=== PATIENT | male | born 1965 | race Caucasian/White ===

== ENCOUNTER → 2017-08-09 | Outpatient (CLI) | payer OTHER ==
--- NOTE | 2017-08-09 15:10 | MR ---
EXAMINATION TYPE: MR knee RT wo con DATE OF EXAM: 08/09/2017 COMPARISON: Plain film 07/26/2017 HISTORY: Right knee pain TECHNIQUE: Multiplanar, multisequence imaging of the knee is performed without IV contrast. FINDINGS: MEDIAL MENISCUS: There is complex tear of the posterior horn the medial meniscus, vertical as well as horizontal component, anterior horn is intact LATERAL MENISCUS: Anterior and posterior horns are intact without tear. CRUCIATE LIGAMENTS: The anterior and posterior cruciate ligaments are intact and unremarkable. COLLATERAL LIGAMENTS: There is some fluid signal along the medial collateral ligament, difficult to e xclude some meniscocapsular separation, strain of the medial collateral ligament EXTENSOR MECHANISM: Visualized quadriceps and patellar tendons are intact. EFFUSION: Small joint effusion is present POPLITEAL CYST: No popliteal/naranjo cyst. TRICOMPARTMENT SPACES: Joint space loss present at the medial compartment CARTILAGE: Grade 2 to grade III chondromalacia present in the medial compartment BONE MARROW SIGNAL: No focal abnormal marrow signal is appreciated. OTHER: As noted on plain film there is a nonfused apophysis at the tibial tubercle, some cystic sign al present within the unfused bone. Some reactive bone marrow edema present in the medial compartment along the medial femoral condyle and medial tibial plateau at the medial extent IMPRESSION: Tear of the medial meniscus, osteoarthritis. Findings of the medial collateral ligament as described. Additional findings above.
== END ==
LOC: RADMRIMAIN 10:59
PROVIDERS: ATTEND Orthopaedic Surgery
DX: S83.241A Other tear of medial meniscus, current injury, right knee, initial encounter (principal); M17.11 Unilateral primary osteoarthritis, right knee; M94.261 Chondromalacia, right knee

== ENCOUNTER → 2017-08-20 | Outpatient (CLI) | payer OTHER ==
[2017-08-20 09:49] LABS: Basophils % (A) 1 %; Eosinophils # (A) 0.3 k/uL (0-0.7); Eosinophils % (A) 6 %; HCT 41.2 % (39.0-53.0); HGB 14.6 gm/dL (13.0-17.5); Lymphocytes # (A) 1.2 k/uL (1.0-4.8); Lymphocytes % (A) 21 %; MCH 30.1 pg (25.0-35.0); MCHC 35.5 g/dL (31.0-37.0); Mean Platelet Volume 6.9; Monocytes # (A) 0.4 k/uL (0-1.0); Monocytes % (A) 6 %; Neutrophils # (A) 3.8 k/uL (1.3-7.7); Neutrophils % (A) 65 %; Platelet Count 244 k/uL (150-450); RBC 4.84 m/uL (4.30-5.90); RDW 12.8 % (11.5-15.5); WBC 5.9 k/uL (3.8-10.6)
[2017-08-20 10:06] LABS: Potassium 4.5 mmol/L (3.5-5.1); Prothrombin Time 10.1 sec (9.0-12.0)
== END | disposition home or self-care (01) ==
LOC: LABPAT 08:52
PROVIDERS: ATTEND Orthopaedic Surgery
DX: Z01.818 Encounter for other preprocedural examination (principal); Z01.812 Encounter for preprocedural laboratory examination; M23.91 Unspecified internal derangement of right knee
CPT/HCPCS: 36415; 80051; 85025; 85610; 93005

== ENCOUNTER 2017-08-24 11:03 | Day surgery (SDC) | payer OTHER ==
[2017-08-19 14:15] VITALS: BMI 41.8
--- NOTE | 2017-08-23 09:15 | HP ---
HISTORY AND PHYSICAL CHIEF COMPLAINT: Right knee pain. HISTORY OF PRESENT ILLNESS: The patient is a 52-year-old [employer] employee who presents with progressive right knee pain for the past 6 months. He notes medial pain along with swelling and stiffness. He has intermittent giving way. He has tried anti-inflammatories with minimal relief. He notes that limits his normal function and activities. PAST MEDICAL HISTORY: Significant for asthma and COPD. CURRENT MEDICATIONS: 1. Advair. 2. Albuterol. He denies drug allergies. SURGICAL HISTORY: Negative. FAMILY HISTORY: Significant for diabetes and cancer. SOCIAL HISTORY: Significant for previous tobacco use; however, he recently quit 2 months ago. PHYSICAL EXAMINATION: The patient is approximately 5 foot 11, 295 pounds of endomorphic habitus. HEENT exam is nonfocal. Neck is supple. He has painless passive motion of his right hip. Straight leg raise is negative. Active motion right knee -10 to 105 degrees of flexion. He has a mild effusion. He is tender about the medial joint line. Collaterals are stable, Chico is negative, Yoshi's elicits medial pain. His distal neurovascular appears to be intact in the right lower extremity. MRI report right knee 08/09/2017 shows a posterior medial meniscal tear along with medial compartment degenerative changes. IMPRESSION: 1. Internal derangement, right knee with symptomatic medial meniscal tear. 2. Right knee moderate medial compartment osteoarthrosis. 3. Increased body mass index with BMI of 41.14. RECOMMENDATIONS: I talked to the patient at length regarding his treatment options. At this point, he is having significant pain and mechanical symptoms that limit his normal function and activities. After thorough discussion, he opts to proceed with surgery. We will plan to proceed with arthroscopic evaluation with probable partial medial meniscectomy. We will likely perform that as an outpatient procedure. Risks and benefits were discussed at length in layman's terms. MMODL / IJN: [id number] /
[~2017-08-24 11:03] MED LIST: DEXAMETHASONE SOD PHOSPHATE 10 MG/ML 1 ML VIAL IV ONE; LACTATED RINGERS 1,000 ML IV SCH; LIDOCAINE 1% 20 ML VIAL (10MG/ML) FOR IV START INTRADERMA PRN; MIDAZOLAM 2 MG/2 ML VIAL IV PRN; MORPHINE SULFATE 4 MG/ML SYRINGE IV PRN; ONDANSETRON 4 MG/2 ML VIAL IVP ONE; SCOPOLAMINE 1.5MG/72HR PATCH TRANSDERM ONE
[2017-08-24] MEDS ORDERED: ROPIVACAINE 5 MG/ML 30 ML VIAL ONE (11:06)
[2017-08-24] MEDS ORDERED: LIDOCAINE 2%-EPI 1:100,000 20 ML VIAL ONE (11:06)
[2017-08-24] MEDS ORDERED: fentaNYL (PF) 50 MCG/ML 2 ML AMP ONE (13:11)
[2017-08-24] MEDS ORDERED: LIDOCAINE 1% INJ 10MG/ML (20 ML MDV) ONE (13:11)
[2017-08-24] MEDS ORDERED: HYDROmorphone (PF) 1 MG/ML ONE (13:11)
[2017-08-24] MEDS ORDERED: MIDAZOLAM 2 MG/2 ML VIAL ONE (13:11)
[2017-08-24] MEDS ORDERED: PROPOFOL 10 MG/ML 20 ML VIAL IV ONE (13:11)
[2017-08-24] MEDS ORDERED: SUCCINYLCHOLINE CHLORIDE VIAL 200 MG/10 ML VIAL IV ONE (13:11)
[2017-08-24] MEDS ORDERED: EPINEPHrine (PF) 1 ML in SODIUM CHLORIDE 0.9% IRRIGATIO 3,000 ML IRRIGATION ONE ×4 (13:34)
--- NOTE | 2017-08-24 14:03 | P.OP ---
Date of Procedure: 08/24/17 Preoperative Diagnosis: Right knee internal derangement Postoperative Diagnosis: Right knee posterior medial meniscal tear/middle one third lateral meniscal tear /reactive synovitis Procedure(s) Performed: Right knee arthroscopic partial medial meniscectomy/partial lateral meniscectomy /partial synovectomy of the medial, lateral, and patellofemoral compartments Anesthesia: RIZWANA Surgeon: Brennan Lockett Estimated Blood Loss (ml): 10 Pathology: none sent Condition: stable Disposition: PACU Indications for Procedure: The patient is a 52-year-old male who presents with progressive right knee pain and mechanical symptoms despite conservative measures. A discussion of the risks and benefits of operative intervention versus continued conservative measures was made with the patient. His MRI was consistent with a symptomatic medial meniscal tear. He opted to proceed with surgery. Operative risks to include infection, neurovascular injury, development of blood clots, possible incomplete resolution of symptoms, possible worsening symptoms and need for subsequent procedures was discussed. Informed consent was obtained. Operative Findings: As below Description of Procedure: The patient was brought to the operating room, and after induction of general anesthesia examined the right knee. Collaterals were stable, Chico was negative, and posterior drawer was negative. The right lower extremity was prepped and draped in a normal fashion. A superior lateral portals made through a 3 mm skin incision superior and lateral to the patella. This was used for outflow. A lateral portal was made through a 5 mm vertical skin incision lateral to the patella tendon above the joint line. Diagnostic arthroscopy was performed. A medial portal was made through a similar incision medial to the patellar tendon above the joint line. On inspection of the medial compartment, there was grade 2 chondral changes diffusely. A posterior medial meniscal tear was noted in the white-white junction. This was not amenable to repair. This was debrided back to stable base with straight baskets and a motorized shaver. The edges were contoured. Remaining medial meniscus was stable and intact. Reactive synovitis involving the anterior medial, anterolateral, and patellofemoral articulation was debrided with motorized shaver. On inspection of the notch, anterior cruciate ligament appeared to be intact. On inspection of the lateral compartment, a radial tear involving the middle one third of the lateral meniscus in the white-white junction was noted. This debrided back to stable base with straight baskets and a motorized shaver. The edges were contoured. No significant chondral injury was noted involving the lateral compartment. On inspection patellofemoral articulation, there was again reactive there was reactive synovitis that was previously debrided. There was some chondral fibrillation however no loose chondral fragments. The gutters were clear of debris. The knee was thoroughly irrigated. The portals were closed with Steri-Strips. A sterile dressing was applied in addition to a compression stocking. The patient was awoken from general anesthesia and transferred to recovery room in good condition. Blood loss was estimated at 10 mL. No complications were incurred.
[2017-08-24] MEDS ORDERED: LACTATED RINGERS 1,000 ML IV ONE (14:17)
[2017-08-24 14:29] VITALS: TEMP 97.4
[2017-08-24] MEDS ORDERED: fentaNYL (PF) 50 MCG/ML 2 ML AMP IVP ONE (14:41)
[2017-08-24 15:44] VITALS: RESP 18
[2017-08-24] MEDS ORDERED: HYDROcodone/APAP 7.5-325MG 1 EACH TAB PO ONE (16:12)
[2017-08-24 16:42] VITALS: BP 129/62; PULSE 77
== END 2017-08-24 16:53 | disposition home or self-care (01) ==
LOC: OR 11:03
PROVIDERS: ATTEND Orthopaedic Surgery
DX: S83.241A Other tear of medial meniscus, current injury, right knee, initial encounter (principal); S83.281A Other tear of lateral meniscus, current injury, right knee, initial encounter; X58.XXXA Exposure to other specified factors, initial encounter; M65.861 Other synovitis and tenosynovitis, right lower leg; J44.9 Chronic obstructive pulmonary disease, unspecified; G47.33 Obstructive sleep apnea (adult) (pediatric); Z99.89 Dependence on other enabling machines and devices; Z87.891 Personal history of nicotine dependence; Z79.51 Long term (current) use of inhaled steroids; Z79.899 Other long term (current) drug therapy
CPT/HCPCS: 29880; J2250; J0330; J1100; J0690; J2405; J0171; J2001; J3010; J1170; J2795; J2704

== ENCOUNTER 2017-08-27 20:19 | Emergency (ER) | payer OTHER ==
[2017-08-27] MEDS ORDERED: IBUPROFEN 400 MG TAB PO STA (21:10)
[2017-08-27] MEDS ORDERED: MORPHINE SULFATE 4 MG/ML SYRINGE IV STA (21:20)
--- NOTE | 2017-08-27 21:28 | ED ---
Extremity Problem HPI - General Chief complaint: Extremity Problem,Nontraumatic Stated complaint: Foot pain Time Seen by Provider: 08/27/17 21:02 Source: patient Mode of arrival: ambulatory Limitations: no limitations - History of Present Illness Initial comments: This patient's 52-year-old man who presents to be evaluated for right foot pain , that is been getting progressively worse for about the past 36 hours. The patient relates that he had an arthroscopic surgery on the right knee on [address] Melvin Soriano, reportedly for meniscus repair. He states that he was doing fairly well after surgery until yesterday in the morning when he started noting that there was pain to his right heel area. He states that it was initially mild to moderate but has become progressively worse and now is painful with any movement of his right ankle or right foot. He has not been able to walk on his right ankle or foot since this afternoon. He states that he tried taking a Freedom that he was prescribed for the surgery about 2 hours but he was having no relief. He does not have any calf pain or swelling. He denies any knee pain or problems with range of motion at the knee. Furthermore patient denies any chest symptoms, including no dyspnea, cough or hemoptysis, pleuritic pain or any pain, or palpitations. The patient denied having chills and states in relation to fever that they did find a fever when he came to triage here. He denies having any symptoms of infection. MD Complaint: extremity pain Onset/Timin -: hour(s) Location: right History of Same: No -: Yes fever Quality: other (Throbbing) Consistency: constant Improves with: nothing Worsens with: nothing Associated Symptoms: fever - Related Data Home Medications Medication Instructions Recorded Confirmed Albuterol Sulfate [Proair Hfa] 1 puff INHALATION Q6HR PRN 08/19/17 08/27/17 Budesonide/Formoterol Fumarate 2 puff INHALATION QAM 08/19/17 08/27/17 [Symbicort 80-4.5 Mcg Inhaler] Previous Rx's Medication Instructions Recorded HYDROcodone/APAP 7.5-325MG [Freedom 1 each PO Q6HR PRN #30 tab 08/24/17 7.5] Cephalexin [Keflex] 500 mg PO Q6HR #28 cap 08/28/17 predniSONE 60 mg PO DAILY #30 tab 08/28/17 Allergies Allergy/AdvReac Type Severity Reaction Status Date / Time shellfish derived [Shellfish] Allergy Swelling/hi Verified 08/27/17 21:29 ves Review of Systems ROS Statement: Those systems with pertinent positive or pertinent negative responses have been documented in the HPI. ROS Other: All systems not noted in ROS Statement are negative. Constitutional: Reports: fever. Denies: chills, weakness ENT: Denies: throat pain, congestion Respiratory: Denies: cough, dyspnea, hemoptysis Cardiovascular: Denies: chest pain, palpitations, orthopnea, syncope Gastrointestinal: Denies: abdominal pain, vomiting, diarrhea Genitourinary: Denies: dysuria, hematuria Musculoskeletal: Reports: as per HPI, arthralgia (Right foot and ankle). Denies : back pain Skin: Denies: rash Neurological: Denies: headache, weakness, numbness, paresthesias Past Medical History Past Medical History: Asthma, Osteoarthritis (OA), Sleep Apnea/CPAP/BIPAP Additional Past Medical History / Comment(s): occ. heartburn, bone spur left foot, History of Any Multi-Drug Resistant Organisms: None Reported Past Surgical History: Orthopedic Surgery Additional Past Surgical History / Comment(s): surgery on rt hand middle finger after baseball injury, oral surgery, Past Anesthesia/Blood Transfusion Reactions: No Reported Reaction Past Psychological History: No Psychological Hx Reported Smoking Status: Current some day smoker Past Alcohol Use History: None Reported Past Drug Use History: None Reported - Past Family History Brother(s) Family Medical History: Cancer Additional Family Medical History / Comment(s): skin General Exam Limitations: no limitations General appearance: alert, in no apparent distress, obese Head exam: Present: atraumatic, normocephalic Eye exam: Present: normal appearance. Absent: scleral icterus, conjunctival injection Respiratory exam: Present: normal lung sounds bilaterally. Absent: respiratory distress, wheezes, rales, rhonchi, stridor Cardiovascular Exam: Present: regular rate, normal rhythm, normal heart sounds. Absent: systolic murmur, diastolic murmur, rubs, gallop GI/Abdominal exam: Present: soft. Absent: tenderness Extremities exam: Present: tenderness (Right foot), normal capillary refill, joint swelling (Right foot). Absent: pedal edema, calf tenderness Neurological exam: Present: alert. Absent: motor sensory deficit Skin exam: Present: warm, dry, intact, normal color, other (There is very mild warmth to palpation of the right foot, otherwise no skin changes. No ulcerations. Patient's knee surgical incisions are completely normal. Clean dry and intact.). Absent: rash, erythema, urticaria, vesicles, petechiae, pallor, mottled, abrasion Course Vital Signs 08/27/17 08/27/17 08/27/17 20:27 22:13 23:00 Temperature 100.8 F H 99.7 F H Pulse Rate 98 81 77 Respiratory 18 18 20 Rate Blood Pressure 128/72 119/59 107/58 O2 Sat by Pulse 94 L 96 97 Oximetry Medical Decision Making - Medical Decision Making On reevaluation, the patient is feeling much better following medication. Clinically, it appears the patient has and inflammatory arthralgia of the right foot, and further history reveals that the patient had similar episode affecting his left foot couple of years ago when he was in [place]. He states that he was worked up for suspected gout, including having arthrocentesis that was negative. Patient states they were not able to exactly determine what was causing things but it did resolve. This episode seems very similar, so patient is given referral for our rheumatology in addition to following up with Dr. Soriano. We have paged Dr. Soriano multiple times tonight but have not been able to reach him and the patient does request to go home for rest. Patient will be given one further dose of analgesia to help him rest tonight. Patient given prescription for prednisone and for Keflex, and he will speak with Dr. Soriano in the morning to start the appropriate medication, and to have immediate follow-up. He will return here should there be any problem with follow-up or any worsening condition. - Lab Data Result diagrams: 08/27/17 21:25 08/27/17 21:25 Lab Results 08/27/17 08/27/17 08/27/17 Range/Units 21:25 21:25 21:25 WBC 8.9 (3.8-10.6) k/uL RBC 4.95 (4.30-5.90) m/uL Hgb 14.7 (13.0-17.5) gm/dL Hct 41.5 (39.0-53.0) % MCV 83.9 (80.0-100.0) fL MCH 29.7 (25.0-35.0) pg MCHC 35.4 (31.0-37.0) g/dL RDW 12.7 (11.5-15.5) % Plt Count 321 (150-450) k/uL Neutrophils % 69 % Lymphocytes % 17 % Monocytes % 8 % Eosinophils % 4 % Basophils % 1 % Neutrophils # 6.2 (1.3-7.7) k/uL Lymphocytes # 1.5 (1.0-4.8) k/uL Monocytes # 0.8 (0-1.0) k/uL Eosinophils # 0.4 (0-0.7) k/uL Basophils # 0.1 (0-0.2) k/uL ESR 18 H (0-15) mm/hr D-Dimer 0.29 (<0.60) mg/L FEU Sodium 139 (137-145) mmol/L Potassium 4.6 (3.5-5.1) mmol/L Chloride 98 (98-107) mmol/L Carbon Dioxide 29 (22-30) mmol/L Anion Gap 12 mmol/L BUN 19 (9-20) mg/dL Creatinine 0.89 (0.66-1.25) mg/dL Est GFR (CKD-EPI)AfAm >90 (>60 ml/min/1.73 sqM) Est GFR (CKD-EPI)NonAf >90 (>60 ml/min/1.73 sqM) Glucose 135 H (74-99) mg/dL Uric Acid 8.0 (3.5-8.5) mg/dL Calcium 9.1 (8.4-10.2) mg/dL C-Reactive Protein 28.5 H (<10.0) mg/L Disposition Clinical Impression: Arthralgia Disposition: HOME SELF-CARE Condition: Good Instructions: Arthralgia (ED) Prescriptions: Cephalexin [Keflex] 500 mg PO Q6HR #28 cap predniSONE 60 mg PO DAILY #30 tab Referrals: Micha Tee DO [Doctor of Osteopathic Medicine] - 1-2 days Brennan Lockett MD [STAFF PHYSICIAN] - 1-2 days Caty Saldivar MD [STAFF PHYSICIAN] - 1-2 days
[2017-08-27 21:37] LABS: Basophils # (A) 0.1 k/uL (0-0.2); Basophils % (A) 1 %; Eosinophils # (A) 0.4 k/uL (0-0.7); Eosinophils % (A) 4 %; HCT 41.5 % (39.0-53.0); HGB 14.7 gm/dL (13.0-17.5); Lymphocytes # (A) 1.5 k/uL (1.0-4.8); Lymphocytes % (A) 17 %; MCH 29.7 pg (25.0-35.0); MCHC 35.4 g/dL (31.0-37.0); MCV 83.9 fL (80.0-100.0); Mean Platelet Volume 6.8; Monocytes # (A) 0.8 k/uL (0-1.0); Monocytes % (A) 8 %; Neutrophils # (A) 6.2 k/uL (1.3-7.7); Neutrophils % (A) 69 %; Platelet Count 321 k/uL (150-450); RBC 4.95 m/uL (4.30-5.90); RDW 12.7 % (11.5-15.5); WBC 8.9 k/uL (3.8-10.6)
[2017-08-27 21:58] LABS: Anion Gap 12 mmol/L; Blood Urea Nitrogen 19 mg/dL (9-20); Calcium 9.1 mg/dL (8.4-10.2); Carbon Dioxide 29 mmol/L (22-30); Chloride 98 mmol/L (98-107); Glucose 135 mg/dL (74-99); Potassium 4.6 mmol/L (3.5-5.1); Sodium 139 mmol/L (137-145)
[2017-08-27 22:14] LABS: C Reactive Protein 28.5 mg/L (<10.0)
[2017-08-27 22:44] LABS: Erythrocyte Sedimentation Rate 18 mm/hr (0-15)
[2017-08-27 23:36] VITALS: RESP 20
[2017-08-28] MEDS ORDERED: MORPHINE SULFATE 4 MG/ML SYRINGE IV STA (00:04)
[2017-08-28 00:28] VITALS: BP 114/57; PULSE 75; TEMP 98.9
== END 2017-08-28 00:28 | disposition home or self-care (01) ==
LOC: EC 20:19
DX: M79.671 Pain in right foot (principal); R50.9 Fever, unspecified; M19.90 Unspecified osteoarthritis, unspecified site; J45.909 Unspecified asthma, uncomplicated; G47.30 Sleep apnea, unspecified; Z99.89 Dependence on other enabling machines and devices; F17.200 Nicotine dependence, unspecified, uncomplicated; Z79.51 Long term (current) use of inhaled steroids; Z91.013 Allergy to seafood
CPT/HCPCS: 36415; 85379; 80048; 85652; 84550; 85025; 86140; 99283; 96374; 96376; J2270 ×2